=== PATIENT | male | born 1935 | race Caucasian/White ===

== ENCOUNTER 2023-01-16 14:10 | Inpatient (IN) ==
[2023-01-16] MEDS ORDERED: 0.9 % SODIUM CHLORIDE 500 ML IV ONE (14:23)
[2023-01-16] MEDS ORDERED: ONDANSETRON 4 MG/2 ML VIAL IV ONE (14:23)
[2023-01-16] MEDS ORDERED: morphine 2 MG/ML VIAL IV ONE (14:23)
--- NOTE | 2023-01-16 14:28 | Emergency Department Note ---
Syncope HPI General Chief Complaint: Trauma Stated Complaint: Fall Time Seen by Provider: 01/16/23 14:19 Source: patient, family and EMS Mode of arrival: EMS Limitations: no limitations History of Present Illness HPI Narrative: Narrative: The patient presents after a syncopal episode that occurred yesterday. Patient was found in the bathtub today by a neighbor. The patient thinks that it was yesterday that he passed out but is not 100% sure. Patient presents with an injury to his left shoulder. Patient has been down at least since yesterday. Patient denies chest pain, headache, abdominal pain, or any other extremity injury. Patient is in a splint for his left shoulder. He is also in a cervical collar. Related Data Home Medications Medication Instructions Recorded Confirmed acetaminophen 300 mg-codeine 30 12.5 ml PO TID 05/25/22 07/10/22 mg/12.5 mL (12.5 mL) oral solution amlodipine 10 mg tablet 10 mg PO QDAY 05/25/22 07/10/22 carvedilol 6.25 mg tablet 6.25 mg PO BID 05/25/22 07/10/22 qjrbbexc-bqo-ccrab acid 300 1 tab PO QDAY 05/25/22 07/10/22 mcg-lycopene 600 mcg-lutein 300 mcg tablet (Centrum Silver Men) quinapril 40 mg tablet 40 mg PO QDAY 05/25/22 07/10/22 salmon oil-omega-3 fatty acids cap PO 05/25/22 07/10/22 1,000 mg-200 mg capsule Previous Rx's Medication Instructions Recorded ibuprofen 400 mg tablet 400 mg PO Q8H PRN prakash #30 tabs 12/28/22 Allergies Allergy/AdvReac Type Severity Reaction Status Date / Time No Known Drug Allergies Allergy Verified 01/16/23 14:19 Review of Systems ROS ROS Narrative: Narrative: All systems ED: reviewed and negative except as stated. PFSH Narrative Patient History Narrative: Narrative: Medical/Surgical/Family History All Active Problems (Updated 01/16/23 @ 16:40 by Charlie Campbell MD) Hematuria (Acute) Arrhythmia (Chronic) Hypertension (Chronic) Elevated liver enzymes (Chronic) Alcoholic fatty liver (Chronic) Cervical spondylolysis (Chronic) Spinal stenosis in cervical region (Chronic) Weakness of distal arms and legs (Chronic) Pain in right shoulder (Chronic) Squamous cell carcinoma (Chronic) Hearing loss (Chronic) Stiff neck (Chronic) Gross hematuria (Acute) H/O prostate cancer (Chronic) Status post radiation therapy (Chronic) Cellulitis of knee, left (Acute) Syncope (Acute) Closed head injury (Acute) Anterior dislocation of left shoulder (Acute) Rhabdomyolysis (Acute) Medical History Alcoholic fatty liver Arrhythmia Cervical spondylolysis with radiculopathy Elevated liver enzymes Hearing loss Hematuria Hypertension Pain in right shoulder Spinal stenosis in cervical region Squamous cell carcinoma Stiff neck Weakness of distal arms and legs Surgical History History of cataract extraction History of surgery Neck Reconstruction-2020 History of surgery implants Family History Father Cancer Sister Diabetes Cancer Social History Smoking Status: Never smoker Alcohol Intake Frequency: 0-2 drinks per day Substance Use: does not use Exam Narrative Narrative: Narrative: General Limitations: no limitations General appearance: Present alert and in no apparent distress Head Head: Present atraumatic and normal inspection Eye Eye: Present normal appearance, PERRL and EOMI ENT ENT: Present mucous membranes dry Neck Neck: Present normal inspection, trachea midline and other (Maintaining inline C-spine stabilization, C-spine is palpated and is nontender); Absent tenderness Chest Chest: Present normal inspection and symmetric chest wall rise; Absent tenderness Respiratory Respiratory: Present normal lung sounds bilaterally; Absent respiratory distress Cardiovascular Cardiovascular: Present regular rate, normal rhythm and other (+2 pulses in all 4 extremities) Adbominal Abdominal: Present soft; Absent distention or tenderness Extremities Extremities: Present tenderness (Tenderness to palpate left shoulder. Palpation the rest of skeletal system reveals no bony tenderness); Absent normal inspection (Deformity to the left shoulder) or full ROM (Decreased ability to move left shoulder) Back Back: Present full ROM; Absent tenderness, CVA tenderness (R) or CVA tenderness (L) Neurological Neurological: Present alert, oriented X3, CN II-XII intact and other (GCS 15); Absent motor sensory deficit Psychiatric Psychiatric: Present normal affect and normal mood Skin Skin: Present warm (WNL) and dry Course Reevaluation(s) Reevaluation #1: After verbal consent was obtained from patient and family, a closed relocation of the left shoulder was attempted. Given patient's medical history, I do not feel comfortable doing a full procedural sedation so we gave him fentanyl and then using traction, countertraction, the shoulder was attempted to be manipulated back into place. Unfortunately, this was unsuccessful. Patient did have greater range of motion and less pain afterwards but I still feel like the shoulder is out. Plan to consult with orthopedics. Time: 15:21 Consultations Consultation #1: I spoke to the orthopedic surgeon, Dr. Deshpande. He said after he gets out of the OR he would come down to see what assistance he could provide Time: 15:23 Consultation #2: Anesthesia is here as well to do the sedation for orthopedics. Time: 16:20 Consultation #3: I spoke to the hospitalist, Dr. Armijo. He agreed to admit Time: 16:36 Vital Signs Vital signs: Vital Signs Temperature 96.6 F L 01/16/23 14:10 Pulse Rate 83 01/16/23 14:10 Respiratory Rate 20 01/16/23 14:10 Blood Pressure 156/92 01/16/23 14:10 Pulse Oximetry (%) 98 01/16/23 14:10 Oxygen Delivery Method Nasal Cannula 01/16/23 14:10 Oxygen Flow Rate (L/min) 2 01/16/23 14:10 Temperature 96.6 F L 01/16/23 14:40 Pulse Rate 44 L 01/16/23 16:17 Respiratory Rate 16 01/16/23 16:17 Blood Pressure 161/75 01/16/23 16:17 Pulse Oximetry (%) 97 01/16/23 16:17 Oxygen Delivery Method Nasal Cannula 01/16/23 16:17 Oxygen Flow Rate (L/min) 2 01/16/23 16:17 [facility] Narrative Medical decision making narrative: Narrative: The patient presents after a syncopal episode that may have occurred yesterday. Patient was then on the ground until today. Patient has an injury to his left shoulder. Patient is on Eliquis. Work-up will be twofold. First for the syncope, we will obtain EKG, keep him on a monitor, and obtain appropriate labs. Regarding the trauma, we will check a CK to see if there is rhabdomyolysis. We will image the head, cervical spine, and left shoulder. Plan to give morphine for pain and Zofran to counteract any nausea. He does appear dehydrated so we will give 1/2 L bolus and start at 100mL an hour Lab Data 01/16/23 14:41 Labs: Lab Results 01/16/23 01/16/23 01/16/23 Range/Units 14:34 14:37 14:39 WBC (4.5-11.0) K/mcL RBC (4.63-6.08) M/mcL Hgb (13.7-17.5) g/dL Hct (40.1-51.0) % POC Hct 48.0 (41-55) MCV (80.0-100.0) fL MCH (26.0-34.0) pg MCHC (31.0-36.0) g/dL RDW (11.5-14.5) % Plt Count (140-440) K/mcL MPV (8.8-12.5) fL Immature Gran % (Auto) (0.0-0.5) % Neut % (Auto) (38.0-78.0) % Lymph % (Auto) (15.5-49.0) % Aiken % (Auto) (1.0-12.0) % Eos % (Auto) (0.0-7.0) % Baso % (Auto) (0.0-2.0) % Lymph # (Auto) (1.50-4.80) K/mcL Aiken # (Auto) (0.10-0.90) K/mcL Eos # (Auto) (0.00-0.70) K/mcL Baso # (Auto) (0.00-0.30) K/mcL Immature Gran # (0.00-0.05) K/mcl Absolute Neutrophils (1.80-8.00) K/mcL PT (11.9-14.5) sec INR (0.9-1.1) APTT (20.0-37.0) sec POC VBG pH 7.33 (7.32-7.42) POC VBG pCO2 at Temp 48.1 (41-51) POC VBG pO2 34 (25-40) POC VBG HCO3 25.5 (24-28) POC VBG Total CO2 27.0 (25-29) POC Venous O2 Sat 60.0 (40-70) POC VBG Base Excess 0 (-2-2) VBG Lactic Acid 1.8 (0.5-2) POC Sodium 141 (133-145) POC Potassium 3.9 (3.3-5.1) POC Chloride 105 (96-108) POC Total CO2 24.0 (22-30) POC BUN 61 H (6-20) POC Creatinine 0.8 (0.6-1.2) POC Glucose 113 H (70-105) POC WB Ioniz Calcium 1.11 L (1.16-1.32) Total Bilirubin (0.1-1.0) mg/dL Direct Bilirubin (<0.3) mg/dL AST (<40) U/L ALT (<40) U/L Alkaline Phosphatase (39-117) U/L Total Creatine Kinase (24-195) U/L Total Protein (5.9-8.4) gm/dL Albumin (3.2-5.2) gm/dL Globulin (2.2-3.7) gm/dL POC Troponin I 0.02 (0.00-0.08) 01/16/23 01/16/23 01/16/23 Range/Units 14:40 14:41 14:41 WBC 15.8 H (4.5-11.0) K/mcL RBC 4.88 (4.63-6.08) M/mcL Hgb 15.8 (13.7-17.5) g/dL Hct 44.2 (40.1-51.0) % POC Hct (41-55) MCV 90.6 (80.0-100.0) fL MCH 32.4 (26.0-34.0) pg MCHC 35.7 (31.0-36.0) g/dL RDW 12.4 (11.5-14.5) % Plt Count 206 (140-440) K/mcL MPV 11.2 (8.8-12.5) fL Immature Gran % (Auto) 0.4 (0.0-0.5) % Neut % (Auto) 86.2 H (38.0-78.0) % Lymph % (Auto) 3.4 L (15.5-49.0) % Aiken % (Auto) 9.9 (1.0-12.0) % Eos % (Auto) 0 (0.0-7.0) % Baso % (Auto) 0.1 (0.0-2.0) % Lymph # (Auto) 0.54 L (1.50-4.80) K/mcL Aiken # (Auto) 1.57 H (0.10-0.90) K/mcL Eos # (Auto) 0 (0.00-0.70) K/mcL Baso # (Auto) 0.02 (0.00-0.30) K/mcL Immature Gran # 0.07 H (0.00-0.05) K/mcl Absolute Neutrophils 13.60 H (1.80-8.00) K/mcL PT 14.6 H (11.9-14.5) sec INR 1.1 (0.9-1.1) APTT 26.2 (20.0-37.0) sec POC VBG pH (7.32-7.42) POC VBG pCO2 at Temp (41-51) POC VBG pO2 (25-40) POC VBG HCO3 (24-28) POC VBG Total CO2 (25-29) POC Venous O2 Sat (40-70) POC VBG Base Excess (-2-2) VBG Lactic Acid (0.5-2) POC Sodium (133-145) POC Potassium (3.3-5.1) POC Chloride (96-108) POC Total CO2 (22-30) POC BUN (6-20) POC Creatinine (0.6-1.2) POC Glucose (70-105) POC WB Ioniz Calcium (1.16-1.32) Total Bilirubin 1.4 H (0.1-1.0) mg/dL Direct Bilirubin 0.4 H (<0.3) mg/dL AST 264 H (<40) U/L ALT 98 H (<40) U/L Alkaline Phosphatase 68 (39-117) U/L Total Creatine Kinase 5089 H (24-195) U/L Total Protein 7.4 (5.9-8.4) gm/dL Albumin 3.5 (3.2-5.2) gm/dL Globulin 3.9 H (2.2-3.7) gm/dL POC Troponin I (0.00-0.08) EKG Data EKG #1: EKG attestation: Yes I reviewed and interpreted this EKG. and Yes There are no EKG findings of acute coronary syndrome EKG results narrative: Possible sinus dysrhythmia, rate 80, normal axis, QTc 484, narrow complex QRS, no acute ST or T changes worrisome for acute infarction CC TIME Critical Care Time Critical Care Time: Yes Total Critical Care Time: 55 Attestation: Without intervention, patient most likely would have a deleterious outcome Discharge Plan Patient/Caregiver Discharge Instructions Pt seen by STENOGRAPHER SECRETARY/PA only: No Clinical Impression: Syncope Qualifiers: Syncope type: unspecified Qualified Code(s): R55 - Syncope and collapse Closed head injury Qualifiers: Encounter type: initial encounter Qualified Code(s): S09.90XA - Unspecified injury of head, initial encounter Anterior dislocation of left shoulder Qualifiers: Encounter type: initial encounter Qualified Code(s): S43.015A - Anterior dislocation of left humerus, initial encounter Rhabdomyolysis Qualifiers: Rhabdomyolysis type: traumatic Encounter type: initial encounter Qualified Code (s): T79.6XXA - Traumatic ischemia of muscle, initial encounter Patient Disposition: Xfer As Inpt ([facility]) Follow up with: Zuri Patton MD [Primary Care Provider] - Prescriptions: No Action acetaminophen-codeine 300 mg-30 mg /12.5 mL solution 12.5 ml PO TID carvedilol 6.25 mg tablet 6.25 mg PO BID Rx Instructions: must administer with a meal/food amlodipine 10 mg tablet 10 mg PO QDAY quinapril 40 mg tablet 40 mg PO QDAY salmon oil-omega-3 fatty acids 1,000-200 mg capsule PO Centrum Silver Men 300-600-300 mcg tablet 1 tab PO QDAY ibuprofen 400 mg tablet 400 mg PO Q8H PRN (Reason: prakash) Qty: 30 0RF
[2023-01-16] MEDS ORDERED: 0.9 % SODIUM CHLORIDE 1,000 ML IV SCH (14:30)
[2023-01-16 14:52] LABS: POC Calcium, Ionized 1.11 (1.16-1.32); POC Creatinine 0.8 (0.6-1.2); POC Potassium 3.9 (3.3-5.1)
[2023-01-16] MEDS ORDERED: fentaNYL 100 MCG/2 ML VIAL IV ONE (15:03)
[2023-01-16 15:28] LABS: Basophils # (Auto) 0.02 K/mcL (0.00-0.30); Basophils % (Auto) 0.1 % (0.0-2.0); Eosinophils # (Auto) 0 K/mcL (0.00-0.70); Eosinophils % (Auto) 0 % (0.0-7.0); Hematocrit 44.2 % (40.1-51.0); Hemoglobin 15.8 g/dL (13.7-17.5); Lymphocytes # (Auto) 0.54 K/mcL (1.50-4.80); Lymphocytes % (Auto) 3.4 % (15.5-49.0); Mean Cell Volume 90.6 fL (80.0-100.0); Mean Corpuscular HGB Conc 35.7 g/dL (31.0-36.0); Mean Platelet Volume 11.2 fL (8.8-12.5); Monocytes # (Auto) 1.57 K/mcL (0.10-0.90); Monocytes % (Auto) 9.9 % (1.0-12.0); Neutrophils % (Auto) 86.2 % (38.0-78.0); Platelet Count 206 K/mcL (140-440); RBC 4.88 M/mcL (4.63-6.08); Red Cell Distribution Width 12.4 % (11.5-14.5); WBC 15.8 K/mcL (4.5-11.0)
[2023-01-16 15:34] LABS: INR 1.1 (0.9-1.1); Prothrombin Time 14.6 sec (11.9-14.5)
[2023-01-16 15:35] LABS: Partial Thromboplastin Time 26.2 sec (20.0-37.0)
--- NOTE | 2023-01-16 15:44 | Cat Scan Report ---
CLINICAL INFORMATION: Trauma-fall COMPARISON: None. TECHNIQUE: 2.5 mm helical slices were obtained in the skull base to vertex. Following reconstruction, axial reformatted images were reviewed at bone and parenchymal windows. The exam was performed using radiation dose optimization techniques including, but not limited to, automated exposure control, adjustment of the mA and/or kV according to patient size and use of iterative reconstruction technique. FINDINGS: The ventricles, sulci, fissures, and cisterns are symmetrically enlarged compatible with mild age-related atrophy. No extra-axial fluid collections are identified. Mild patchy chronic ischemic changes, in the deep cerebral white matter, are expected for age. There is no hemorrhage, mass effect, or edema. Bone windows show no osseous abnormality. IMPRESSION: Mild atrophy and chronic ischemic changes in the deep cerebral white matter-expected for age. No acute findings Interpreted and Authenticated by: Tate Phelps 01/16/23
--- NOTE | 2023-01-16 15:51 | XRay Report ---
CLINICAL INFORMATION: sycope COMPARISON: Health Assessment And Treatment Teacher films of the lower chest from abdomen and pelvic CT 06/07/2022. FINDINGS:: Moderate cardiomegaly is stable. Mediastinum and pulmonary vessels are normal. Marked chronic elevation left diaphragm with compressive atelectasis in the overlying lingula and left lower lobe seen as before. The remaining lungs are clear. Complete dislocation of the left glenohumeral joint appreciated. There is marked superior subluxation of the right humerus suggesting chronic rotator cuff tear. Few malunified old left-sided rib fractures noted. IMPRESSION: No acute disease. Marked chronic elevation left diaphragm resulting in compressive atelectasis overlying lingula left lower lobe-stable Moderate stable cardiomegaly Complete dislocation left glenohumeral joint. There is subluxation right humeral patible with impingement chronic rotator cuff tear Interpreted and Authenticated by: Tate Phelps 01/16/23
[2023-01-16 15:52] LABS: ALT/SGPT 98 U/L (<40); AST/SGOT 264 U/L (<40); Albumin 3.5 gm/dL (3.2-5.2); Alkaline Phosphatase 68 U/L (39-117); Bilirubin,Direct 0.4 mg/dL (<0.3); Bilirubin,Total 1.4 mg/dL (0.1-1.0); Globulin 3.9 gm/dL (2.2-3.7)
--- NOTE | 2023-01-16 15:54 | XRay Report ---
CLINICAL INFORMATION: fall COMPARISON: None. FINDINGS: Complete anterior inferior dislocation of glenohumeral joint appreciated. There is a subtle Bankart fracture of the anterior-inferior osseous glenoid. Also Hill-Sachs fracture posterior lateral humeral head. The acromioclavicular joint is normal. Soft tissue swelling appreciated. Multiple old posterior left rib fractures appreciated IMPRESSION: Complete anterior-inferior glenohumeral dislocation with associated Bankart and Hill-Sachs fractures. Interpreted and Authenticated by: Tate Phelps 01/16/23
--- NOTE | 2023-01-16 16:03 | Cat Scan Report ---
CLINICAL INFORMATION: COMPARISON: None. TECHNIQUE: 0.625 mm helical slices were obtained from the skull base through the superior T2 end plate, and following reconstruction, 2.5 mm sagittal, coronal and axial reformations were then processed. The exam was reviewed at bone and soft tissue windows. The exam was performed using radiation dose optimization techniques including, but not limited to, automated exposure control, adjustment of the mA and/or kV according to patient size and use of iterative reconstruction technique. FINDINGS: The cervical spine is anatomically aligned. Mild wedging of the T2 vertebral body likely indicates a mild old compression fracture-there is no paraspinous edema in this region. No fracture lines identified. C1-2 fusion changes provided by pedicle screws and interbody struts appreciated. The left C1 screw stents through the left epidural region of the central canal with the tip between the dens and the left anterior arch of C1. The left C2 screw extends through the pedicle into the left foramen transversarium. The cervical cord is normal in contour and caliber without hemorrhage or other abnormality. Soft tissues are normal. The C2-3 disc level is normal. At C3-4, mild broad disc spur complex with left-sided asymmetry and facet arthropathy result in severe left IV foraminal narrowing. At C4-5, mild broad disc spur complex and marked facet arthropathy result in moderate left and mild right IV foraminal narrowing. At C5-6, mild broad disc for complex and facet arthropathy result in severe left IV foraminal narrowing. At C6-7, mild broad disc protrusion complex facet arthropathy results in mild bilateral IV foraminal narrowing At C7-T1, mild broad disc protrusion results in moderate IV foraminal narrowing mild central canal stenosis. IMPRESSION: 1. Minimal wedging of the T2 vertebral body likely reflects a chronic fracture. There is no edema in this region suggest acute fracture. 2. C1-2 posterior fusion changes as described 3. Multilevel degeneration resulting in IV foraminal narrowing at the levels described. Interpreted and Authenticated by: Tate Phelps 01/16/23
[2023-01-16 16:05] LABS: Creatine Kinase 5089 U/L (24-195)
[2023-01-16] MEDS ORDERED: PROPOFOL 200 MG/20 ML VIAL IV ONE (16:31)
--- NOTE | 2023-01-16 16:50 | Orthopedic Consult Note ---
HPI Date of Consult Consult Date: 01/16/23 Primary Care Provider: Zuri Patton Consult Narrative Patient Information: Note initiated : 01/16/23 at 4:49 pm Service Date, if different from initiated Date: [] Patient: Cornelius Sullivan 88 y/o M admitted on for Fall. Chief Complaint: [Left shoulder dislocation ] Chief complaint: left shoudler pain, dislocation Reason for consult: left shoudler pain, dislocation cc:: CC: PFSH PFSH All Active Problems (Updated 01/16/23 @ 16:40 by Charlie Campbell MD) Hematuria (Acute) Arrhythmia (Chronic) Hypertension (Chronic) Elevated liver enzymes (Chronic) Alcoholic fatty liver (Chronic) Cervical spondylolysis (Chronic) Spinal stenosis in cervical region (Chronic) Weakness of distal arms and legs (Chronic) Pain in right shoulder (Chronic) Squamous cell carcinoma (Chronic) Hearing loss (Chronic) Stiff neck (Chronic) Gross hematuria (Acute) H/O prostate cancer (Chronic) Status post radiation therapy (Chronic) Cellulitis of knee, left (Acute) Syncope (Acute) Closed head injury (Acute) Anterior dislocation of left shoulder (Acute) Rhabdomyolysis (Acute) Medical History Alcoholic fatty liver Arrhythmia Cervical spondylolysis with radiculopathy Elevated liver enzymes Hearing loss Hematuria Hypertension Pain in right shoulder Spinal stenosis in cervical region Squamous cell carcinoma Stiff neck Weakness of distal arms and legs Surgical History History of cataract extraction History of surgery Neck Reconstruction-2020 History of surgery implants Family History Father Cancer Sister Diabetes Cancer Social History marital status: occupational status: retired leisure activities: exercise smoking status: Never smoker alcohol intake frequency: 0-2 drinks per day substance use type: does not use MEDS/ALLERGIES Home Medications and Allergies Home Medications Medication Instructions Recorded Confirmed Type acetaminophen 300 mg-codeine 30 12.5 ml PO TID 05/25/22 07/10/22 History mg/12.5 mL (12.5 mL) oral solution amlodipine 10 mg tablet 10 mg PO QDAY 05/25/22 07/10/22 History carvedilol 6.25 mg tablet 6.25 mg PO BID 05/25/22 07/10/22 History dkanxbva-cxo-bignn acid 300 1 tab PO QDAY 05/25/22 07/10/22 History mcg-lycopene 600 mcg-lutein 300 mcg tablet (Centrtimoteo Barrett Men) quinapril 40 mg tablet 40 mg PO QDAY 05/25/22 07/10/22 History salmon oil-omega-3 fatty acids cap PO 05/25/22 07/10/22 History 1,000 mg-200 mg capsule ibuprofen 400 mg tablet 400 mg PO Q8H PRN prakash #30 tabs 12/28/22 Rx Allergies Allergy/AdvReac Type Severity Reaction Status Date / Time No Known Drug Allergies Allergy Verified 01/16/23 14:19 Physical Examination Narrative Narrative: Narrative: Patient is a 88 YO male who presented to the [facility] ED after a syncopal episode that occurred yesterday. Patient was found in the bathtub today by a neighbor. The patient thinks that it was yesterday that he passed out but is not 100% sure. Patient presents with an injury to his left shoulder. Patient has been down at least since yesterday. Patient denies chest pain, headache, abdominal pain, or any other extremity injury. Patient is in a splint for his left shoulder. He is also in a cervical collar. A/P Narrative A/P Narrative: On exam patient is seated in bed in no acute distress. He is able to answer simple questions appropriately and is alert. At the left shoulder area there is gross deformity and xray imaging reveals an anterior shoulder dislocation. entirety of left arm is warm, well perfused and neuro intact with capillary refill less than 2 seconds and bounding radial pulses. I discussed the risks of reduction maneuver with family and patient including fracture, injury to nerves and blood vessels, they wish to proceed. Plan of Treatment: After informed consent and induction of anesthesia via 100mg of propofol which was administered and monitored by anesthesia provider the left shoulder was reduced utilizing traction/ counter traction abduction and flexion technique. This was confirmed with mobile radiology interpreted by myself. The patient was then placed in a shoulder immobilizer [facility] sling and will follow up with JUWAN 10-14 days s/p discharge from hospital. Bounding radial pulses were palpated after the procedure. Time Spent With Patient Time: Total time spent is greater than 50% in coordination of care (as documented) at patient's floor/unit and/or counseling patient:
--- NOTE | 2023-01-16 17:06 | Internal Med History&Physical ---
HPI History of Present Illness Patient information: Note initiated : 01/16/23 at 4:56 pm Service Date, if different from initiated Date: [] Patient: Cornelius Sullivan a 88 y/o M admitted on for Fall. Chief Complaint: [unresponsiveness] Chief complaint: unresponsiveness History of present illness: Mr. Sullivan is a 88 year old M history of hypertensions presenting with unresponsiveness. Patient had an appointment with his family but he did not show up so his family was concerned and called patient's neighbor to check on him. Patient's neighbor found that the patient was on his bath top unresponsive so EMS was called to send the patient to our ER for further evaluations. Upon arrival to the ER, patient was able to carry out conversations but x-ray of the shoulder found that he has a left anterior-inferior glenohumeral dislocations with associated Bankart and Hill-Sachs fracture. Patient was likely sedated and orthopedic surgeons Dr. Deshpande was called to reduced his left shoulder dislocations. CT of the head did not show any acute intracranial pathologies. Labs also found the patient have elevated serum CK level 5089 with serum Cr level 0.8. Admission request is called for rhabdomyolysis as well as for safety discharge planning. Review of Systems ROS unobtainable: due to mental status PFSH PFSH All Active Problems (Updated 01/16/23 @ 17:04 by Aman Armijo MD) Dislocation of left shoulder joint (Acute) Hematuria (Acute) Arrhythmia (Chronic) Hypertension (Chronic) Elevated liver enzymes (Chronic) Alcoholic fatty liver (Chronic) Cervical spondylolysis (Chronic) Spinal stenosis in cervical region (Chronic) Weakness of distal arms and legs (Chronic) Pain in right shoulder (Chronic) Squamous cell carcinoma (Chronic) Hearing loss (Chronic) Stiff neck (Chronic) Gross hematuria (Acute) H/O prostate cancer (Chronic) Status post radiation therapy (Chronic) Cellulitis of knee, left (Acute) Syncope (Acute) Closed head injury (Acute) Anterior dislocation of left shoulder (Acute) Rhabdomyolysis (Acute) Medical History Alcoholic fatty liver Arrhythmia Cervical spondylolysis with radiculopathy Elevated liver enzymes Hearing loss Hematuria Hypertension Pain in right shoulder Spinal stenosis in cervical region Squamous cell carcinoma Stiff neck Weakness of distal arms and legs Surgical History History of cataract extraction History of surgery Neck Reconstruction-2020 History of surgery implants Family History Father Cancer Sister Diabetes Cancer Social History marital status: occupational status: retired leisure activities: exercise smoking status: Never smoker alcohol intake frequency: 0-2 drinks per day substance use type: does not use MEDS/ALLERGIES Home Medications and Allergies Home Medications Medication Instructions Recorded Confirmed Type acetaminophen 300 mg-codeine 30 12.5 ml PO TID 05/25/22 07/10/22 History mg/12.5 mL (12.5 mL) oral solution amlodipine 10 mg tablet 10 mg PO QDAY 05/25/22 07/10/22 History carvedilol 6.25 mg tablet 6.25 mg PO BID 05/25/22 07/10/22 History nbylgaip-uun-immlk acid 300 1 tab PO QDAY 05/25/22 07/10/22 History mcg-lycopene 600 mcg-lutein 300 mcg tablet (Centrum Silver Men) quinapril 40 mg tablet 40 mg PO QDAY 05/25/22 07/10/22 History salmon oil-omega-3 fatty acids cap PO 05/25/22 07/10/22 History 1,000 mg-200 mg capsule ibuprofen 400 mg tablet 400 mg PO Q8H PRN prakash #30 tabs 12/28/22 Rx Allergies Allergy/AdvReac Type Severity Reaction Status Date / Time No Known Drug Allergies Allergy Verified 01/16/23 14:19 EXAM Constitutional Vitals: Temp Pulse Resp BP Pulse Ox O2 Del Method O2 Flow Rate 35.9 C L 83 18 118/62 98 Nasal Cannula 2 01/16/23 14:40 01/16/23 16:42 01/16/23 16:37 01/16/23 16:37 01/16/23 16:42 01/16/23 16:17 01/16/23 16:17 General appearance: cooperative and no acute distress Exam: sedated Head Head exam: Present atraumatic and normocephalic Eye Eye exam: Present EOMI and PERRL ENT ENT exam: Present mucous membranes moist, normal exam and normal external ear exam Additional comments: Nasal cannula in place Neck Neck exam: Present normal inspection; Absent lymphadenopathy, tenderness or thyromegaly Respiratory Respiratory exam: Absent accessory muscle use, respiratory distress or wheezes Cardiovascular Cardiovascular exam: Present normal rate and rhythm; Absent JVD GI/Abdominal GI/Abdominal exam: Present normal bowel sounds and soft; Absent organomegaly or tenderness Rectal Rectal exam: Present deferred Extremities Exam Extremities exam: Present normal capillary refill, normal inspection and tenderness; Absent full ROM Additional comments: Left shoulder sling in place Active and passive ROMs limited by pain Neurological Exam Neurological exam: Present alert, CN II-XII intact and oriented X3; Absent motor sensory deficit Psychiatric Psychiatric exam: Present normal affect and normal mood; Absent anxious or depressed Skin Skin exam: Present dry and intact DATA Data Completed and Pending Labs: Labs from last 24 hours 01/16/23 01/16/23 01/16/23 14:41 14:41 14:40 WBC 15.8 H RBC 4.88 Hgb 15.8 Hct 44.2 POC Hct MCV 90.6 MCH 32.4 MCHC 35.7 RDW 12.4 Plt Count 206 MPV 11.2 Immature Gran % (Auto) 0.4 Neut % (Auto) 86.2 H Lymph % (Auto) 3.4 L Door % (Auto) 9.9 Eos % (Auto) 0 Baso % (Auto) 0.1 Lymph # (Auto) 0.54 L Door # (Auto) 1.57 H Eos # (Auto) 0 Baso # (Auto) 0.02 Immature Gran # 0.07 H Absolute Neutrophils 13.60 H PT 14.6 H INR 1.1 APTT 26.2 POC VBG pH POC VBG pCO2 at Temp POC VBG pO2 POC VBG HCO3 POC VBG Total CO2 POC Venous O2 Sat POC VBG Base Excess VBG Lactic Acid POC Sodium POC Potassium POC Chloride POC Total CO2 POC BUN POC Creatinine POC Glucose POC WB Ioniz Calcium Total Bilirubin 1.4 H Direct Bilirubin 0.4 H AST 264 H ALT 98 H Alkaline Phosphatase 68 Total Creatine Kinase 5089 H Total Protein 7.4 Albumin 3.5 Globulin 3.9 H POC Troponin I 01/16/23 01/16/23 01/16/23 14:39 14:37 14:34 WBC RBC Hgb Hct POC Hct 48.0 MCV MCH MCHC RDW Plt Count MPV Immature Gran % (Auto) Neut % (Auto) Lymph % (Auto) Door % (Auto) Eos % (Auto) Baso % (Auto) Lymph # (Auto) Door # (Auto) Eos # (Auto) Baso # (Auto) Immature Gran # Absolute Neutrophils PT INR APTT POC VBG pH 7.33 POC VBG pCO2 at Temp 48.1 POC VBG pO2 34 POC VBG HCO3 25.5 POC VBG Total CO2 27.0 POC Venous O2 Sat 60.0 POC VBG Base Excess 0 VBG Lactic Acid 1.8 POC Sodium 141 POC Potassium 3.9 POC Chloride 105 POC Total CO2 24.0 POC BUN 61 H POC Creatinine 0.8 POC Glucose 113 H POC WB Ioniz Calcium 1.11 L Total Bilirubin Direct Bilirubin AST ALT Alkaline Phosphatase Total Creatine Kinase Total Protein Albumin Globulin POC Troponin I 0.02 A/P Assessment and plan (1) Dislocation of left shoulder joint: Status: Acute (2) Rhabdomyolysis: Status: Acute Qualifiers: Encounter type: initial encounter Rhabdomyolysis type: traumatic Qualified Code(s): T79.6XXA - Traumatic ischemia of muscle, initial encounter (3) Hypertension: Status: Chronic Narrative A/P Narrative: Assessment and Plans: 1. Rhabdomyolysis: Inpatient med surg s/p IV fluid bolus given in the ER, to be followed by NS@200cc/hr Daily serum CK level to trend 2. Left shoulder dislocation: s/p reduction by Dr. Deshpande Tylenol Oxycodone Morphine Sling 10-14 days follow up with Dr. Deshpande Physical therapy evaluation and treatment Occupational therapy evaluation and treatment 3. Essential hypertension: Coreg Amlodipine Quinapril Hydralazine 10mg IV q4-6hr PRN SBP>=180 and/or DBP>=110mmHg GI ppx: not currently indicated DVT ppx: Lovenox Code status: Full Prognosis: guarded Disposition: inpatient med surg Time Spent With Patient Time: Total time spent is greater than 50% in coordination of care (as documented) at patient's floor/unit and/or counseling patient: Subsequent: Total time with patient: 35 - 49 minutes
--- NOTE | 2023-01-16 17:27 | XRay Report ---
CLINICAL INFORMATION: post reduction COMPARISON: Prereduction films 01/16/2023 1430 hours. FINDINGS: Left humeral joint is anatomically aligned following reduction. Hill-Sachs fracture posterior lateral humeral cortex of the Bankart fracture anterior inferior cortex are poorly visualized. The acromioclavicular joint is normal. Soft tissue swelling appreciated. IMPRESSION: Glenohumeral joint is now anatomically aligned following reduction after dislocation Interpreted and Authenticated by: Tate Phelps 01/16/23
[2023-01-16] MEDS ORDERED: IPRATROPIUM/ALBUTEROL 3 ML AMPUL.NEB NEB PRN (17:46)
[2023-01-16] MEDS ORDERED: ACETAMINOPHEN 325 MG TABLET PO PRN (17:46)
[2023-01-16] MEDS ORDERED: ONDANSETRON 4 MG/2 ML VIAL IV PRN (17:46)
[2023-01-16] MEDS ORDERED: traZODone HCL 50 MG TABLET PO PRN (17:46)
[2023-01-16] MEDS ORDERED: hydrALAZINE 20 MG/ML VIAL IV PRN (17:46)
[2023-01-16] MEDS ORDERED: morphine 4 MG/ML VIAL IV PRN (17:46)
[2023-01-16] MEDS ORDERED: oxyCODONE IR 5 MG TABLET PO PRN (17:46)
[2023-01-16] MEDS: 0.9 % SODIUM CHLORIDE 1,000 ML IV SCH ×2 (18:19→23:26)
[2023-01-16 19:21] LABS: Creatine Kinase 5330 U/L (24-195)
[2023-01-16] MEDS: SENNOSIDES 1 TABLET PO SCH (21:00)
[2023-01-16] MEDS: DOCUSATE SODIUM 100 MG CAPSULE PO SCH (21:00)
[2023-01-16] MEDS: 0.9 % SODIUM CHLORIDE 10 ML SYRINGE IV SCH (23:49)
[2023-01-17] MEDS: 0.9 % SODIUM CHLORIDE 1,000 ML IV SCH ×4 (04:35→19:44)
[2023-01-17 06:19] LABS: Basophils # (Auto) 0 K/mcL (0.00-0.30); Basophils % (Auto) 0 % (0.0-2.0); Eosinophils # (Auto) 0.01 K/mcL (0.00-0.70); Eosinophils % (Auto) 0.1 % (0.0-7.0); Hematocrit 38.6 % (40.1-51.0); Hemoglobin 13.9 g/dL (13.7-17.5); Lymphocytes # (Auto) 0.49 K/mcL (1.50-4.80); Lymphocytes % (Auto) 4.8 % (15.5-49.0); Mean Platelet Volume 11.2 fL (8.8-12.5); Monocytes % (Auto) 10.9 % (1.0-12.0); Neutrophils % (Auto) 83.9 % (38.0-78.0); Platelet Count 173 K/mcL (140-440); RBC 4.24 M/mcL (4.63-6.08); Red Cell Distribution Width 12.7 % (11.5-14.5); WBC 10.1 K/mcL (4.5-11.0)
[2023-01-17 06:48] LABS: ALT/SGPT 80 U/L (<40); AST/SGOT 193 U/L (<40); Albumin 2.7 gm/dL (3.2-5.2); Albumin/Globulin Ratio 0.9 (1.0-2.3); Alkaline Phosphatase 55 U/L (39-117); Bilirubin,Total 0.7 mg/dL (0.1-1.0); Blood Urea Nitrogen 59 mg/dL (8-23); Calcium 7.9 mg/dL (8.6-10.4); Carbon Dioxide 21 mmol/L (22-30); Chloride 110 mmol/L (96-108); Globulin 3.1 gm/dL (2.2-3.7); Glomerular Filtration Rate 79; Glucose 92 mg/dL (70-105)
[2023-01-17] MEDS: 0.9 % SODIUM CHLORIDE 10 ML SYRINGE IV SCH ×3 (08:14→20:16)
[2023-01-17] MEDS: DOCUSATE SODIUM 100 MG CAPSULE PO SCH ×2 (08:16→20:15)
[2023-01-17] MEDS ORDERED: ENOXAPARIN 30 MG/0.3 ML SYRINGE SQ SCH (09:00)
[2023-01-17] MEDS ORDERED: INDOMETHACIN 25 MG CAPSULE PO PRN (11:04)
--- NOTE | 2023-01-17 11:11 | Internal Med Progress Note ---
SUBJECTIVE Subjective Patient information: Note initiated : 01/17/23 at 11:08 am Service Date, if different from initiated Date: [] Patient: Cornelius Sullivan a 88 y/o M admitted on 01/16/23 for Fall, Rhabdo. Chief Complaint: [] Interval history: Mr. Sullivan is a 88 year old M history of hypertensions presenting with unresponsiveness. Patient had an appointment with his family but he did not show up so his family was concerned and called patient's neighbor to check on him. Patient's neighbor found that the patient was on his bath top unresponsive so EMS was called to send the patient to our ER for further evaluations. Upon arrival to the ER, patient was able to carry out conversations but x-ray of the shoulder found that he has a left anterior-inferior glenohumeral dislocations with associated Bankart and Hill-Sachs fracture. Patient was likely sedated and orthopedic surgeons Dr. Deshpande was called to reduced his left shoulder disloc ations. CT of the head did not show any acute intracranial pathologies. Labs also found the patient have elevated serum CK level 5089 with serum Cr level 0.8. Admission request is called for rhabdomyolysis as well as for safety discharge planning. 01/17: Serum Cr level 0.8, serum CK 5330. Adequate urine output. Patient denies having any left shoulder pain. A&OX2 to person and place only. Continue normal saline infusion at 200 cc/h. Continue with daily CMP and CK to trend kidney functions and serum CK level, respectively. Narcotic as needed for left shoulder pain. Physical therapy and Occupational Therapy evaluation and treatment for placement pending. Overall condition guarded. [facility] Constitutional Vitals: Vital Signs Temp Pulse Resp BP Pulse Ox O2 Del Method O2 Flow Rate 37.1 C 75 12 142/74 96 Nasal Cannula 4 01/17/23 07:03 01/17/23 07:03 01/17/23 04:00 01/17/23 07:03 01/17/23 07:03 01/17/23 07:03 01/17/23 07:03 Period Temp Pulse Resp BP Sys/Alexis Pulse Ox O2 Del Method O2 Flow Rate Last 24 Hr 35.9 C-37.2 C 44-107 12-21 118-186/59-94 96-100 Nasal Cannula- Nasal Cannula 2-4 Intake and Output 01/16/23 01/17/23 01/17/23 19:59 03:59 11:59 Intake Total 1500 1150 1800 Output Total 301 Balance 1500 1150 1499 Weight 92.306 kg Intake & Output: Intake & Output 01/16/23 01/17/23 01/17/23 19:59 03:59 11:59 Intake Total 1500 1150 1800 Output Total 301 Balance 1500 1150 1499 Weight 92.306 kg Intake: IV 1500 1000 1000 Sodium Chloride 0.9% 1,000 ml @ 1000 1000 1000 200 mls/hr IV .Q5H COUNT INCLUDES THE [facility] Rx#: [id number] Sodium Chloride 0.9% 500 ml @ 500 Wide Open IV BOLUS ONE Rx#: [id number] Oral 150 800 Output: Void Amount 300 # of times incontinent of urine 1 Other: Meal Breakfast Percent of Meal Consumed 50% Feeding Ability Assist with Tray Set Up Urine Appearance Clear Urine Color Tea Colored Tea Colored Dark Rosalba Urine Odor Normal Normal # Voids 1 Head Head exam: Present atraumatic and normal inspection Eye Eye exam: Present normal appearance ENT ENT exam: Present mucous membranes moist, normal exam and normal external ear exam Additional comments: Nasal cannula oxygen in place. Neck Neck exam: Present normal inspection Respiratory Respiratory exam: Present normal respiratory exam Additional comments: Left upper extremity sling in place Cardiovascular Cardiovascular exam: Present normal rate and rhythm GI/Abdominal GI/Abdominal exam: Present normal bowel sounds Back Exam Back exam: Present normal inspection Neurological Exam Neurological exam: Present alert Additional comments: oriented X2 to person and place only Skin Skin exam: Present intact and warm OBJ DATA Labs 01/17/23 05:38 01/17/23 05:38 Labs: Abnormal Lab Results 01/17/23 01/17/23 01/16/23 05:38 05:38 17:55 WBC RBC 4.24 L Hct 38.6 L Neut % (Auto) 83.9 H Lymph % (Auto) 4.8 L Lymph # (Auto) 0.49 L Campbell # (Auto) 1.10 H Immature Gran # Absolute Neutrophils 8.49 H PT Chloride 110 H Carbon Dioxide 21 L POC BUN BUN 59 H POC Glucose Calcium 7.9 L POC WB Ioniz Calcium Total Bilirubin Direct Bilirubin AST 193 H ALT 80 H Total Creatine Kinase 5330 H Total Protein 5.8 L Albumin 2.7 L Globulin Albumin/Globulin Ratio 0.9 L 01/16/23 01/16/23 01/16/23 14:41 14:41 14:40 WBC 15.8 H RBC Hct Neut % (Auto) 86.2 H Lymph % (Auto) 3.4 L Lymph # (Auto) 0.54 L Campbell # (Auto) 1.57 H Immature Gran # 0.07 H Absolute Neutrophils 13.60 H PT 14.6 H Chloride Carbon Dioxide POC BUN BUN POC Glucose Calcium POC WB Ioniz Calcium Total Bilirubin 1.4 H Direct Bilirubin 0.4 H AST 264 H ALT 98 H Total Creatine Kinase 5089 H Total Protein Albumin Globulin 3.9 H Albumin/Globulin Ratio 01/16/23 14:37 WBC RBC Hct Neut % (Auto) Lymph % (Auto) Lymph # (Auto) Campbell # (Auto) Immature Gran # Absolute Neutrophils PT Chloride Carbon Dioxide POC BUN 61 H BUN POC Glucose 113 H Calcium POC WB Ioniz Calcium 1.11 L Total Bilirubin Direct Bilirubin AST ALT Total Creatine Kinase Total Protein Albumin Globulin Albumin/Globulin Ratio Meds: Medications Acetaminophen (Acetaminophen 325 Mg Tablet) 650 mg PO Q6HP PRN; Protocol PRN Reason: Per Pain Protocol/Fever > 101 Albuterol/Ipratropium (Ipratropium/Albuterol 3 Ml Ampul.Neb) 3 ml NEB Q4HRT PRN PRN Reason: Wheezing Amlodipine Besylate (Amlodipine 10 Mg Tablet) 10 mg PO QDAY COUNT INCLUDES THE [facility] Apixaban (Apixaban 5 Mg Tablet) 5 mg PO BID COUNT INCLUDES THE [facility] Docusate Sodium (Docusate Sodium 100 Mg Capsule) 100 mg PO BID COUNT INCLUDES THE [facility] Last Admin: 01/17/23 08:16 Dose: 100 mg Enoxaparin Sodium (Enoxaparin 30 Mg/0.3 Ml Syringe) 30 mg SQ DAILY COUNT INCLUDES THE [facility] Last Admin: 01/17/23 08:16 Dose: 30 mg Hydralazine HCl (Hydralazine 20 Mg/Ml Vial) 10 mg IV Q4-6HP PRN PRN Reason: Hypertension Sodium Chloride (Sodium Chloride 0.9%) 1,000 mls @ 200 mls/hr IV .Q5H COUNT INCLUDES THE [facility] Last Admin: 01/17/23 08:16 Dose: Not Given Indomethacin (Indomethacin 25 Mg Capsule) 25 mg PO TIDP PRN PRN Reason: "three times daily as needed" Losartan Potassium (Losartan 25 Mg Tablet) 25 mg PO DAILY COUNT INCLUDES THE [facility] Morphine Sulfate (Morphine 4 Mg/Ml Vial) 2 mg IV Q4HP PRN; Protocol PRN Reason: Per Pain Protocol Last Admin: 01/16/23 17:56 Dose: 2 mg Ondansetron HCl (Ondansetron 4 Mg/2 Ml Vial) 4 mg IV Q6HP PRN PRN Reason: Nausea And Vomiting Oxycodone HCl (Oxycodone Ir 5 Mg Tablet) 5 mg PO Q4HP PRN; Protocol PRN Reason: Per Pain Protocol Last Admin: 01/16/23 22:03 Dose: 5 mg Senna (Sennosides 1 Tablet) 2 tab PO HS COUNT INCLUDES THE [facility] Last Admin: 01/16/23 21:00 Dose: Not Given Sodium Chloride (0.9 % Sodium Chloride 10 Ml Syringe) 10 ml IV Q8 COUNT INCLUDES THE [facility] Last Admin: 01/17/23 08:14 Dose: Not Given Trazodone HCl (Trazodone Hcl 50 Mg Tablet) 25 mg PO HSP PRN PRN Reason: Insomnia A/P Assessment and plan (1) Dislocation of left shoulder joint: Status: Acute (2) Rhabdomyolysis: Status: Acute Qualifiers: Encounter type: initial encounter Rhabdomyolysis type: traumatic Qualified Code(s): T79.6XXA - Traumatic ischemia of muscle, initial encounter (3) Hypertension: Status: Chronic Narrative A/P Narrative: Assessment and Plans: 1. Rhabdomyolysis: Inpatient med surg s/p IV fluid bolus given in the ER, to be followed by NS@200cc/hr Daily serum CK level to trend Daily CMP to trend kidney functions 2. Left shoulder dislocation: s/p reduction by Dr. Deshpande Tylenol Oxycodone Morphine Sling 10-14 days follow up with Dr. Deshpande Physical therapy evaluation and treatment Occupational therapy evaluation and treatment 3. Essential hypertension: Coreg Amlodipine Quinapril Hydralazine 10mg IV q4-6hr PRN SBP>=180 and/or DBP>=110mmHg GI ppx: not currently indicated DVT ppx: Lovenox Code status: Full Prognosis: guarded Disposition: inpatient med surg Time Spent With Patient Time: Total time spent is greater than 50% in coordination of care (as documented) at patient's floor/unit and/or counseling patient: Subsequent: Total time with patient: 35 - 49 minutes QUALITY Stroke Symptom Onset Unknown: No VTE Deep Vein Thrombosis/Pulmonary Embolism Present on Admission: No
[2023-01-17 19:14] LABS: Creatine Kinase 1922 U/L (24-195)
[2023-01-17] MEDS: SENNOSIDES 1 TABLET PO SCH (20:15)
[2023-01-17] MEDS: APIXABAN 5 MG TABLET PO SCH (20:15)
[2023-01-18] MEDS: 0.9 % SODIUM CHLORIDE 1,000 ML IV SCH ×6 (01:38→23:12)
[2023-01-18] MEDS: 0.9 % SODIUM CHLORIDE 10 ML SYRINGE IV SCH ×3 (05:29→20:16)
[2023-01-18 06:45] LABS: Basophils # (Auto) 0.01 K/mcL (0.00-0.30); Basophils % (Auto) 0.1 % (0.0-2.0); Eosinophils # (Auto) 0.02 K/mcL (0.00-0.70); Eosinophils % (Auto) 0.3 % (0.0-7.0); Hematocrit 37.9 % (40.1-51.0); Hemoglobin 12.4 g/dL (13.7-17.5); Lymphocytes # (Auto) 0.67 K/mcL (1.50-4.80); Lymphocytes % (Auto) 8.7 % (15.5-49.0); Mean Cell Volume 98.2 fL (80.0-100.0); Mean Corpuscular HGB Conc 32.7 g/dL (31.0-36.0); Mean Platelet Volume 10.7 fL (8.8-12.5); Monocytes # (Auto) 1.02 K/mcL (0.10-0.90); Monocytes % (Auto) 13.2 % (1.0-12.0); Neutrophils % (Auto) 76.9 % (38.0-78.0); Platelet Count 154 K/mcL (140-440); RBC 3.86 M/mcL (4.63-6.08); Red Cell Distribution Width 13.2 % (11.5-14.5); WBC 7.7 K/mcL (4.5-11.0)
[2023-01-18 07:22] LABS: ALT/SGPT 64 U/L (<40); AST/SGOT 129 U/L (<40); Albumin 2.6 gm/dL (3.2-5.2); Albumin/Globulin Ratio 0.8 (1.0-2.3); Alkaline Phosphatase 52 U/L (39-117); Bilirubin,Total 0.8 mg/dL (0.1-1.0); Blood Urea Nitrogen 37 mg/dL (8-23); Calcium 7.8 mg/dL (8.6-10.4); Carbon Dioxide 20 mmol/L (22-30); Chloride 112 mmol/L (96-108); Globulin 3.1 gm/dL (2.2-3.7); Glomerular Filtration Rate 89; Glucose 105 mg/dL (70-105)
[2023-01-18] MEDS: amLODIPine 10 MG TABLET PO SCH (08:14)
[2023-01-18] MEDS: DOCUSATE SODIUM 100 MG CAPSULE PO SCH ×2 (08:14→20:16)
[2023-01-18] MEDS: APIXABAN 5 MG TABLET PO SCH ×2 (08:14→20:16)
[2023-01-18] MEDS: LOSARTAN 25 MG TABLET PO SCH (08:14)
--- NOTE | 2023-01-18 11:01 | Internal Med Progress Note ---
SUBJECTIVE Subjective Patient information: Note initiated : 01/18/23 at 10:59 am Service Date, if different from initiated Date: [] Patient: Cornelius Sullivan a 88 y/o M admitted on 01/16/23 for Fall, Rhabdo. Chief Complaint: [] Interval history: Mr. Sullivan is a 88 year old M history of hypertensions presenting with unresponsiveness. Patient had an appointment with his family but he did not show up so his family was concerned and called patient's neighbor to check on him. Patient's neighbor found that the patient was on his bath top unresponsive so EMS was called to send the patient to our ER for further evaluations. Upon arrival to the ER, patient was able to carry out conversations but x-ray of the shoulder found that he has a left anterior-inferior glenohumeral dislocations with associated Bankart and Hill-Sachs fracture. Patient was likely sedated and orthopedic surgeons Dr. Deshpande was called to reduced his left shoulder disloc ations. CT of the head did not show any acute intracranial pathologies. Labs also found the patient have elevated serum CK level 5089 with serum Cr level 0.8. Admission request is called for rhabdomyolysis as well as for safety discharge planning. 01/17: Serum Cr level 0.8, serum CK 5330. Adequate urine output. Patient denies having any left shoulder pain. A&OX2 to person and place only. Continue normal saline infusion at 200 cc/h. Continue with daily CMP and CK to trend kidney functions and serum CK level, respectively. Narcotic as needed for left shoulder pain. Physical therapy and Occupational Therapy evaluation and treatment for placement pending. Overall condition guarded. Stay in [facility]. 01/18: Serum Cr level 0.6, serum CK 1922. Adequate urine output. Patient denies having any left shoulder pain. A&OX2 to person and place only. Continue normal saline infusion at 200 cc/h. Continue with daily CMP and CK to trend kidney functions and serum CK level, respectively. Narcotic as needed for left shoulder pain. Physical therapy and Occupational Therapists recs. SNF placement. Overall condition stable. Stay in [facility] while pending discharge to SNF. Constitutional Vitals: Vital Signs Temp Pulse Resp BP Pulse Ox O2 Del Method O2 Flow Rate 37.1 C 73 20 162/76 97 Nasal Cannula 2 01/18/23 07:43 01/18/23 07:43 01/18/23 07:43 01/18/23 07:43 01/18/23 07:43 01/18/23 07:43 01/18/23 07:43 Period Temp Pulse Resp BP Sys/Alexis Pulse Ox O2 Del Method O2 Flow Rate Last 24 Hr 36.6 C-37.2 C 73-91 20-22 137-171/72-84 94-99 Nasal Cannula- Nasal Cannula 2-4 Intake and Output 01/17/23 01/18/23 01/18/23 19:59 03:59 11:59 Intake Total 1480 1000 650 Output Total 252 301 Balance 1228 699 650 Weight 91.217 kg Intake & Output: Intake & Output 01/17/23 01/18/23 01/18/23 19:59 03:59 11:59 Intake Total 1480 1000 650 Output Total 252 301 Balance 1228 699 650 Weight 91.217 kg Intake: IV 1000 1000 Sodium Chloride 0.9% 1,000 ml @ 1000 1000 200 mls/hr IV .Q5H [facility] Rx#: [id number] Oral 480 650 Output: Void Amount 250 300 # of times incontinent of urine 2 1 Other: Meal Dinner Percent of Meal Consumed 100% Feeding Ability Independent Urine Appearance Clear Clear Urine Color Dark Rosalba Light Rosalba Urine Odor Strong # Bowel Movements 0 Head Head exam: Present atraumatic and normal inspection Eye Eye exam: Present normal appearance ENT ENT exam: Present mucous membranes moist, normal exam and normal external ear exam Additional comments: Nasal cannula in place Neck Neck exam: Present normal inspection Respiratory Respiratory exam: Present normal respiratory exam Cardiovascular Cardiovascular exam: Present normal rate and rhythm GI/Abdominal GI/Abdominal exam: Present normal bowel sounds Extremities Exam Extremities exam: Present tenderness; Absent full ROM or normal inspection Additional comments: Left shoulder sling in place Back Exam Back exam: Present normal inspection Neurological Exam Neurological exam: Present alert; Absent oriented X3 Additional comments: oriented X2 to person and place only Skin Skin exam: Present intact and warm OBJ DATA Labs 01/18/23 05:18 01/18/23 05:18 Labs: Abnormal Lab Results 01/18/23 01/18/23 01/17/23 05:18 05:18 17:50 WBC RBC 3.86 L Hgb 12.4 L Hct 37.9 L Immature Gran % (Auto) 0.8 H Neut % (Auto) Lymph % (Auto) 8.7 L Walsh % (Auto) 13.2 H Lymph # (Auto) 0.67 L Walsh # (Auto) 1.02 H Immature Gran # 0.06 H Absolute Neutrophils PT Chloride 112 H Carbon Dioxide 20 L POC BUN BUN 37 H Creatinine 0.6 L POC Glucose Calcium 7.8 L POC WB Ioniz Calcium Total Bilirubin Direct Bilirubin AST 129 H ALT 64 H Total Creatine Kinase 1922 H Total Protein 5.7 L Albumin 2.6 L Globulin Albumin/Globulin Ratio 0.8 L 01/17/23 01/17/23 01/16/23 05:38 05:38 17:55 WBC RBC 4.24 L Hgb Hct 38.6 L Immature Gran % (Auto) Neut % (Auto) 83.9 H Lymph % (Auto) 4.8 L Walsh % (Auto) Lymph # (Auto) 0.49 L [place] # (Auto) 1.10 H Immature Gran # Absolute Neutrophils 8.49 H PT Chloride 110 H Carbon Dioxide 21 L POC BUN BUN 59 H Creatinine POC Glucose Calcium 7.9 L POC WB Ioniz Calcium Total Bilirubin Direct Bilirubin AST 193 H ALT 80 H Total Creatine Kinase 5330 H Total Protein 5.8 L Albumin 2.7 L Globulin Albumin/Globulin Ratio 0.9 L 01/16/23 01/16/23 01/16/23 14:41 14:41 14:40 WBC 15.8 H RBC Hgb Hct Immature Gran % (Auto) Neut % (Auto) 86.2 H Lymph % (Auto) 3.4 L Walsh % (Auto) Lymph # (Auto) 0.54 L [place] # (Auto) 1.57 H Immature Gran # 0.07 H Absolute Neutrophils 13.60 H PT 14.6 H Chloride Carbon Dioxide POC BUN BUN Creatinine POC Glucose Calcium POC WB Ioniz Calcium Total Bilirubin 1.4 H Direct Bilirubin 0.4 H AST 264 H ALT 98 H Total Creatine Kinase 5089 H Total Protein Albumin Globulin 3.9 H Albumin/Globulin Ratio 01/16/23 14:37 WBC RBC Hgb Hct Immature Gran % (Auto) Neut % (Auto) Lymph % (Auto) Walsh % (Auto) Lymph # (Auto) Walsh # (Auto) Immature Gran # Absolute Neutrophils PT Chloride Carbon Dioxide POC BUN 61 H BUN Creatinine POC Glucose 113 H Calcium POC WB Ioniz Calcium 1.11 L Total Bilirubin Direct Bilirubin AST ALT Total Creatine Kinase Total Protein Albumin Globulin Albumin/Globulin Ratio Meds: Medications Acetaminophen (Acetaminophen 325 Mg Tablet) 650 mg PO Q6HP PRN; Protocol PRN Reason: Per Pain Protocol/Fever > 101 Albuterol/Ipratropium (Ipratropium/Albuterol 3 Ml Ampul.Neb) 3 ml NEB Q4HRT PRN PRN Reason: Wheezing Amlodipine Besylate (Amlodipine 10 Mg Tablet) 10 mg PO QDAY [facility] Last Admin: 01/18/23 08:14 Dose: 10 mg Apixaban (Apixaban 5 Mg Tablet) 5 mg PO BID [facility] Last Admin: 01/18/23 08:14 Dose: 5 mg Docusate Sodium (Docusate Sodium 100 Mg Capsule) 100 mg PO BID [facility] Last Admin: 01/18/23 08:14 Dose: 100 mg Hydralazine HCl (Hydralazine 20 Mg/Ml Vial) 10 mg IV Q4-6HP PRN PRN Reason: Hypertension Sodium Chloride (Sodium Chloride 0.9%) 1,000 mls @ 200 mls/hr IV .Q5H [facility] Last Admin: 01/18/23 05:16 Dose: Not Given Indomethacin (Indomethacin 25 Mg Capsule) 25 mg PO TIDP PRN PRN Reason: "three times daily as needed" Losartan Potassium (Losartan 25 Mg Tablet) 25 mg PO DAILY [facility] Last Admin: 01/18/23 08:14 Dose: 25 mg Morphine Sulfate (Morphine 4 Mg/Ml Vial) 2 mg IV Q4HP PRN; Protocol PRN Reason: Per Pain Protocol Last Admin: 01/16/23 17:56 Dose: 2 mg Ondansetron HCl (Ondansetron 4 Mg/2 Ml Vial) 4 mg IV Q6HP PRN PRN Reason: Nausea And Vomiting Oxycodone HCl (Oxycodone Ir 5 Mg Tablet) 5 mg PO Q4HP PRN; Protocol PRN Reason: Per Pain Protocol Last Admin: 01/16/23 22:03 Dose: 5 mg Senna (Sennosides 1 Tablet) 2 tab PO HS [facility] Last Admin: 01/17/23 20:15 Dose: 2 tab Sodium Chloride (0.9 % Sodium Chloride 10 Ml Syringe) 10 ml IV Q8 [facility] Last Admin: 01/18/23 05:29 Dose: Not Given Trazodone HCl (Trazodone Hcl 50 Mg Tablet) 25 mg PO HSP PRN PRN Reason: Insomnia A/P Assessment and plan (1) Dislocation of left shoulder joint: Status: Acute (2) Rhabdomyolysis: Status: Acute Qualifiers: Encounter type: initial encounter Rhabdomyolysis type: traumatic Qualified Code(s): T79.6XXA - Traumatic ischemia of muscle, initial encounter (3) Hypertension: Status: Chronic Narrative A/P Narrative: Assessment and Plans: 1. Rhabdomyolysis: Inpatient med surg s/p IV fluid bolus given in the ER, to be followed by NS@200cc/hr Daily serum CK level to trend Daily CMP to trend kidney functions 2. Left shoulder dislocation: s/p reduction by Dr. Deshpande Tylenol Oxycodone Morphine Sling 10-14 days follow up with Dr. Deshpande Physical therapy evaluation and treatment Occupational therapy evaluation and treatment 3. Essential hypertension: Coreg Amlodipine Quinapril Hydralazine 10mg IV q4-6hr PRN SBP>=180 and/or DBP>=110mmHg GI ppx: not currently indicated DVT ppx: Lovenox Code status: Full Prognosis: guarded Disposition: inpatient med surg; SNF Time Spent With Patient Time: Total time spent is greater than 50% in coordination of care (as documented) at patient's floor/unit and/or counseling patient: Subsequent: Total time with patient: 35 - 49 minutes QUALITY Stroke Symptom Onset Unknown: No VTE Deep Vein Thrombosis/Pulmonary Embolism Present on Admission: No
[2023-01-18 18:49] LABS: Creatine Kinase 641 U/L (24-195)
[2023-01-18] MEDS: SENNOSIDES 1 TABLET PO SCH (20:16)
[2023-01-19] MEDS: 0.9 % SODIUM CHLORIDE 1,000 ML IV SCH ×2 (04:13→09:19)
[2023-01-19] MEDS: 0.9 % SODIUM CHLORIDE 10 ML SYRINGE IV SCH ×2 (05:03→05:08)
--- NOTE | 2023-01-19 05:48 | EKG ---
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
[2023-01-19 06:18] LABS: Basophils # (Auto) 0.03 K/mcL (0.00-0.30); Basophils % (Auto) 0.4 % (0.0-2.0); Eosinophils # (Auto) 0.06 K/mcL (0.00-0.70); Eosinophils % (Auto) 0.8 % (0.0-7.0); Hematocrit 34.2 % (40.1-51.0); Hemoglobin 12.1 g/dL (13.7-17.5); Lymphocytes # (Auto) 0.81 K/mcL (1.50-4.80); Lymphocytes % (Auto) 10.6 % (15.5-49.0); Mean Cell Volume 92.4 fL (80.0-100.0); Mean Corpuscular HGB Conc 35.4 g/dL (31.0-36.0); Mean Platelet Volume 10.9 fL (8.8-12.5); Monocytes # (Auto) 0.97 K/mcL (0.10-0.90); Monocytes % (Auto) 12.7 % (1.0-12.0); Neutrophils % (Auto) 74.3 % (38.0-78.0); Platelet Count 157 K/mcL (140-440); Red Cell Distribution Width 12.8 % (11.5-14.5); WBC 7.6 K/mcL (4.5-11.0)
[2023-01-19 06:52] LABS: ALT/SGPT 56 U/L (<40); AST/SGOT 83 U/L (<40); Albumin 2.4 gm/dL (3.2-5.2); Albumin/Globulin Ratio 0.8 (1.0-2.3); Alkaline Phosphatase 51 U/L (39-117); Bilirubin,Total 0.7 mg/dL (0.1-1.0); Blood Urea Nitrogen 20 mg/dL (8-23); Carbon Dioxide 23 mmol/L (22-30); Chloride 114 mmol/L (96-108); Glomerular Filtration Rate 96; Glucose 112 mg/dL (70-105)
--- NOTE | 2023-01-19 07:29 | Orthopedic Progress Note ---
SUBJECTIVE Subjective Patient information: Note initiated : 01/19/23 at 7:27 am Service Date, if different from initiated Date: [] Patient: Cornelius Sullivan 88 y/o M admitted on 01/16/23 for . Chief Complaint: [s/p left shoulder reduction ] Pertinent ROS: 10 points reviewed and are negative except where mentioned Constitutional Vitals: Vital Signs Temp Pulse Resp BP Pulse Ox O2 Del Method O2 Flow Rate 98.0 F 65 16 158/84 95 Nasal Cannula 4 01/19/23 07:06 01/19/23 07:06 01/19/23 07:06 01/19/23 07:06 01/19/23 07:06 01/19/23 07:06 01/19/23 07:06 Period Temp Pulse Resp BP Sys/Alexis Pulse Ox O2 Del Method O2 Flow Rate Last 24 Hr 97.7 F-98.8 F 63-79 16-24 130-170/67-84 95-98 Nasal Cannula- Room Air 2-4 Intake and Output 01/18/23 01/19/23 01/19/23 19:59 03:59 11:59 Intake Total 1645 1400 1000 Output Total 475 825 100 Balance 1170 575 900 Weight 201 lb 1.6 oz 206 lb 9.6 oz Intake & Output: Intake & Output 01/18/23 01/19/23 01/19/23 19:59 03:59 11:59 Intake Total 1645 1400 1000 Output Total 475 825 100 Balance 1170 575 900 Weight 201 lb 1.6 oz 206 lb 9.6 oz Intake: IV 980 1000 1000 Sodium Chloride 0.9% 1,000 ml @ 980 1000 1000 200 mls/hr IV .Q5H [facility] Rx#: [id number] Oral 665 400 Output: Void Amount 475 825 100 Other: Meal Dinner Percent of Meal Consumed 100% Feeding Ability Assist with Tray Set Up Urine Appearance Clear Clear Urine Color Light Rosalba Light Rosalba Urine Odor Normal Stool Size Copious Stool Color Brown Stool Consistency Loose # Voids 1 # Bowel Movements 1 OBJ DATA Labs 01/19/23 05:34 01/19/23 05:34 Labs: Abnormal Lab Results 01/19/23 01/19/23 01/18/23 05:34 05:34 18:00 WBC RBC 3.70 L Hgb 12.1 L Hct 34.2 L Immature Gran % (Auto) 1.2 H Neut % (Auto) Lymph % (Auto) 10.6 L [place] % (Auto) 12.7 H Lymph # (Auto) 0.81 L [place] # (Auto) 0.97 H Immature Gran # 0.09 H Absolute Neutrophils PT Chloride 114 H Carbon Dioxide Anion Gap 5.0 L POC BUN BUN Creatinine 0.5 L Glucose 112 H POC Glucose Calcium 8.0 L POC WB Ioniz Calcium Total Bilirubin Direct Bilirubin AST 83 H ALT 56 H Total Creatine Kinase 641 H Total Protein 5.4 L Albumin 2.4 L Globulin Albumin/Globulin Ratio 0.8 L 01/18/23 01/18/23 01/17/23 05:18 05:18 17:50 WBC RBC 3.86 L Hgb 12.4 L Hct 37.9 L Immature Gran % (Auto) 0.8 H Neut % (Auto) Lymph % (Auto) 8.7 L [place] % (Auto) 13.2 H Lymph # (Auto) 0.67 L [place] # (Auto) 1.02 H Immature Gran # 0.06 H Absolute Neutrophils PT Chloride 112 H Carbon Dioxide 20 L Anion Gap POC BUN BUN 37 H Creatinine 0.6 L Glucose POC Glucose Calcium 7.8 L POC WB Ioniz Calcium Total Bilirubin Direct Bilirubin AST 129 H ALT 64 H Total Creatine Kinase 1922 H Total Protein 5.7 L Albumin 2.6 L Globulin Albumin/Globulin Ratio 0.8 L 01/17/23 01/17/23 01/16/23 05:38 05:38 17:55 WBC RBC 4.24 L Hgb Hct 38.6 L Immature Gran % (Auto) Neut % (Auto) 83.9 H Lymph % (Auto) 4.8 L [place] % (Auto) Lymph # (Auto) 0.49 L [place] # (Auto) 1.10 H Immature Gran # Absolute Neutrophils 8.49 H PT Chloride 110 H Carbon Dioxide 21 L Anion Gap POC BUN BUN 59 H Creatinine Glucose POC Glucose Calcium 7.9 L POC WB Ioniz Calcium Total Bilirubin Direct Bilirubin AST 193 H ALT 80 H Total Creatine Kinase 5330 H Total Protein 5.8 L Albumin 2.7 L Globulin Albumin/Globulin Ratio 0.9 L 01/16/23 01/16/23 01/16/23 14:41 14:41 14:40 WBC 15.8 H RBC Hgb Hct Immature Gran % (Auto) Neut % (Auto) 86.2 H Lymph % (Auto) 3.4 L [place] % (Auto) Lymph # (Auto) 0.54 L [place] # (Auto) 1.57 H Immature Gran # 0.07 H Absolute Neutrophils 13.60 H PT 14.6 H Chloride Carbon Dioxide Anion Gap POC BUN BUN Creatinine Glucose POC Glucose Calcium POC WB Ioniz Calcium Total Bilirubin 1.4 H Direct Bilirubin 0.4 H AST 264 H ALT 98 H Total Creatine Kinase 5089 H Total Protein Albumin Globulin 3.9 H Albumin/Globulin Ratio 01/16/23 14:37 WBC RBC Hgb Hct Immature Gran % (Auto) Neut % (Auto) Lymph % (Auto) [place] % (Auto) Lymph # (Auto) [place] # (Auto) Immature Gran # Absolute Neutrophils PT Chloride Carbon Dioxide Anion Gap POC BUN 61 H BUN Creatinine Glucose POC Glucose 113 H Calcium POC WB Ioniz Calcium 1.11 L Total Bilirubin Direct Bilirubin AST ALT Total Creatine Kinase Total Protein Albumin Globulin Albumin/Globulin Ratio Meds: Medications Acetaminophen (Acetaminophen 325 Mg Tablet) 650 mg PO Q6HP PRN; Protocol PRN Reason: Per Pain Protocol/Fever > 101 Albuterol/Ipratropium (Ipratropium/Albuterol 3 Ml Ampul.Neb) 3 ml NEB Q4HRT PRN PRN Reason: Wheezing Amlodipine Besylate (Amlodipine 10 Mg Tablet) 10 mg PO QDAY [facility] Last Admin: 01/18/23 08:14 Dose: 10 mg Apixaban (Apixaban 5 Mg Tablet) 5 mg PO BID [facility] Last Admin: 01/18/23 20:16 Dose: 5 mg Docusate Sodium (Docusate Sodium 100 Mg Capsule) 100 mg PO BID [facility] Last Admin: 01/18/23 20:16 Dose: 100 mg Hydralazine HCl (Hydralazine 20 Mg/Ml Vial) 10 mg IV Q4-6HP PRN PRN Reason: Hypertension Sodium Chloride (Sodium Chloride 0.9%) 1,000 mls @ 200 mls/hr IV .Q5H [facility] Last Admin: 01/19/23 04:13 Dose: 200 mls/hr Indomethacin (Indomethacin 25 Mg Capsule) 25 mg PO TIDP PRN PRN Reason: "three times daily as needed" Losartan Potassium (Losartan 25 Mg Tablet) 25 mg PO DAILY [facility] Last Admin: 01/18/23 08:14 Dose: 25 mg Morphine Sulfate (Morphine 4 Mg/Ml Vial) 2 mg IV Q4HP PRN; Protocol PRN Reason: Per Pain Protocol Last Admin: 01/16/23 17:56 Dose: 2 mg Ondansetron HCl (Ondansetron 4 Mg/2 Ml Vial) 4 mg IV Q6HP PRN PRN Reason: Nausea And Vomiting Oxycodone HCl (Oxycodone Ir 5 Mg Tablet) 5 mg PO Q4HP PRN; Protocol PRN Reason: Per Pain Protocol Last Admin: 01/16/23 22:03 Dose: 5 mg Senna (Sennosides 1 Tablet) 2 tab PO HS [facility] Last Admin: 01/18/23 20:16 Dose: 2 tab Sodium Chloride (0.9 % Sodium Chloride 10 Ml Syringe) 10 ml IV Q8 [facility] Last Admin: 01/19/23 05:08 Dose: Not Given Trazodone HCl (Trazodone Hcl 50 Mg Tablet) 25 mg PO HSP PRN PRN Reason: Insomnia A/P Narrative A/P Narrative: Patient seen and examined this a.m. awake alert conversant, cooperative answers questions appropriately. Has no complaints of pain at the left shoulder, pillow sling shoulder immobilizer in place and intact. No obvious deformities at the shoulder area, left arm is warm, well-perfused, neurovascular intact with bounding radial pulses. Does endorse some numbness at the third and fourth fingers, suspect mild wrist palsy as his hand is extended past the end of sling and laterally dependent. Discussed maintaining proper fitment of his arm in the sling for relief. Stable from orthopedic standpoint will defer final disposition to attending hospitalist. Plan is for expected discharge in 1 to 2 days at hospitalist discretion with follow-up at [facility] in 10 to 14 days. Nonweightbearing with left upper extremity Sling at all times. PT/OT Pain control Time Spent With Patient Time: Total time spent is greater than 50% in coordination of care (as documented) at patient's floor/unit and/or counseling patient:
[2023-01-19] MEDS: amLODIPine 10 MG TABLET PO SCH (08:17)
[2023-01-19] MEDS: LOSARTAN 25 MG TABLET PO SCH (08:17)
[2023-01-19] MEDS: DOCUSATE SODIUM 100 MG CAPSULE PO SCH (08:18)
[2023-01-19] MEDS: APIXABAN 5 MG TABLET PO SCH (08:18)
--- NOTE | 2023-01-19 14:26 | Discharge Summary ---
Discharge Provider Provider IMPORTANT FOLLOW-UP INFORMATION FOR PCP: Patient information: Note initiated : 01/19/23 at 2:17 pm Service Date, if different from initiated Date: [] Patient: Cornelius Sullivan a 88 y/o M admitted on 01/16/23 for Fall, Rhabdo. Chief Complaint: [] Date of admission: 01/16/23 17:38 Discharge date: 01/19/23 Primary care physician: Zuri Patton Attending physician on admission: Aman Armijo Consults: 01/16/23 16:12 Consult to Physician [CONS] Stat Comment: Consulting Provider: Tate Deshpande Reason For Exam: Physician to Consult Consult to Physician [CONS] Stat Comment: Consulting Provider: Aman Armijo Reason For Exam: Physician to Consult Attending physician on discharge: Aman Armijo COURSE Hospital Course Hospital course: Mr. Sullivan is a 88 year old M history of hypertensions presenting with unresponsiveness. Patient had an appointment with his family but he did not show up so his family was concerned and called patient's neighbor to check on him. Patient's neighbor found that the patient was on his bath top unresponsive so EMS was called to send the patient to our ER for further evaluations. Upon arrival to the ER, patient was able to carry out conversations but x-ray of the shoulder found that he has a left anterior-inferior glenohumeral dislocations with associated Bankart and Hill-Sachs fracture. Patient was likely sedated and orthopedic surgeons Dr. Deshpande was called to reduced his left shoulder dislocations. CT of the head did not show any acute intracranial pathologies. Labs also found the patient have elevated serum CK level 5089 with serum Cr level 0.8. Admission request is called for rhabdomyolysis as well as for safety discharge planning. 01/17: Serum Cr level 0.8, serum CK 5330. Adequate urine output. Patient denies having any left shoulder pain. A&OX2 to person and place only. Continue normal saline infusion at 200 cc/h. Continue with daily CMP and CK to trend kidney functions and serum CK level, respectively. Narcotic as needed for left shoulder pain. Physical therapy and Occupational Therapy evaluation and treatment for placement pending. Overall condition guarded. Stay in [facility]. 01/18: Serum Cr level 0.6, serum CK 1922. Adequate urine output. Patient denies having any left shoulder pain. A&OX2 to person and place only. Continue normal saline infusion at 200 cc/h. Continue with daily CMP and CK to trend kidney functions and serum CK level, respectively. Narcotic as needed for left shoulder pain. Physical therapy and Occupational Therapists recs. SNF placement. Overall condition stable. Stay in [facility] while pending discharge to SNF. 01/19: Discharged to SNF. Followed up with wound care, with orthopedic, and SNF MD, respectively. Rx given to patient. All questions were answered prior to patient being physically discharged. Discharge diagnosis: Rhabdomyolysis, sacral decubitus ulcer, left shoulder dislocation Time Spent with Patient Time attestation: Total time spent providing and/or coordinating discharge services: Time spent: Greater than 30 minutes EXAM Constitutional Vitals: Temp Pulse Resp BP Pulse Ox O2 Del Method O2 Flow Rate 36.6 C 65 16 145/74 95 Room Air 4 01/19/23 12:00 01/19/23 12:01/19/23 12:01/19/23 12:01/19/23 12:00 01/19/23 12:00 01/19/23 12:00 General appearance: cooperative and no acute distress Head Head exam: Present atraumatic and normocephalic Eye Eye exam: Present EOMI and PERRL ENT ENT exam: Present mucous membranes moist, normal exam and normal external ear exam Additional comments: Nasal cannula in place Neck Neck exam: Present normal inspection; Absent lymphadenopathy, tenderness or thyromegaly Respiratory Respiratory exam: Absent accessory muscle use, respiratory distress or wheezes Cardiovascular Cardiovascular exam: Present normal rate and rhythm; Absent JVD GI/Abdominal GI/Abdominal exam: Present normal bowel sounds and soft; Absent organomegaly or tenderness Rectal Rectal exam: Present deferred Extremities Exam Extremities exam: Present full ROM, normal capillary refill and normal inspection; Absent tenderness Additional comments: Left shoulder sling in place Back Exam Additional comments: Sacral decubitus ulcer, unstageable Neurological Exam Neurological exam: Present alert, CN II-XII intact and oriented X3; Absent motor sensory deficit Psychiatric Psychiatric exam: Present normal affect and normal mood; Absent anxious or depressed Skin Skin exam: Present dry; Absent intact Additional comments: Sacral decubitus ulcer, unstageable Left elbow stage II ulcer Discharge Data Data Completed and Pending Labs on day of discharge: Labs from last 24 hours 0501/19/23 01/18/23 05:34 05:34 18:00 WBC 7.6 RBC 3.70 L Hgb 12.1 L Hct 34.2 L MCV 92.4 MCH 32.7 MCHC 35.4 RDW 12.8 Plt Count 157 MPV 10.9 Immature Gran % (Auto) 1.2 H Neut % (Auto) 74.3 Lymph % (Auto) 10.6 L [place] % (Auto) 12.7 H Eos % (Auto) 0.8 Baso % (Auto) 0.4 Lymph # (Auto) 0.81 L [place] # (Auto) 0.97 H Eos # (Auto) 0.06 Baso # (Auto) 0.03 Immature Gran # 0.09 H Absolute Neutrophils 5.67 Sodium 142 Potassium 3.7 Chloride 114 H Carbon Dioxide 23 Anion Gap 5.0 L BUN 20 Creatinine 0.5 L GFR Calculation 96 Glucose 112 H Calcium 8.0 L Total Bilirubin 0.7 AST 83 H ALT 56 H Alkaline Phosphatase 51 Total Creatine Kinase 641 H Total Protein 5.4 L Albumin 2.4 L Globulin 3.0 Albumin/Globulin Ratio 0.8 L Discharge Plan Patient/Caregiver Discharge Instructions Activity: increase activity as tolerated Diet: Regular Diet Prescriptions: Continued carvedilol 6.25 mg tablet 6.25 mg PO BID Rx Instructions: must administer with a meal/food amlodipine 10 mg tablet 10 mg PO QDAY quinapril 40 mg tablet 40 mg PO QDAY salmon oil-omega-3 fatty acids 1,000-200 mg capsule PO Centrum Silver Men 300-600-300 mcg tablet 1 tab PO QDAY ibuprofen 400 mg tablet 400 mg PO Q8H PRN (Reason: prakash) Qty: 30 0RF apixaban 5 mg tablet 5 mg PO BID losartan 25 mg tablet 25 mg PO QID indomethacin 25 mg capsule 25 mg PO TID PRN (Reason: "three times daily as needed") Changed acetaminophen-codeine 300 mg tablet 300 mg PO TID PRN (Reason: as needed) Qty: 30 0RF Rx Instructions: take one tablet 300/30mg by mouth three times daily as needed. Discontinued acetaminophen-codeine 300 mg-30 mg /12.5 mL solution PO TID Other Ambulatory Orders: OT Discharge Order (Routine) Location: None Selected Ordered By: Aman Armijo Physical Therapy at Discharge - General (Routine) Location: None Selected Ordered By: Aman Armijo Follow Up Plan Follow up with: Jared Alanis MD [Physician] - (Follow up in the wound healing clinic within 5-7 days after discharge for sacral unstageable pressure injury. ) Tate Deshpande MD [Physician] - (10-14 d s/p reduction dislocation) Zuri Patton MD [Primary Care Provider] - Patient Disposition: Xfer SNF Rehab Potential: Good I certify that the patient requires SNF services: Yes Overall status at discharge: patient is progressing back to baseline Discharge Orders: Discharge Order (Routine); Ordered 01/19/23 Ordered By: Aman Armijo QUALITY VTE Deep Vein Thrombosis/Pulmonary Embolism Present on Admission: No
[2023-01-19] MEDS ORDERED: FUROSEMIDE 40 MG TABLET PO ONE (14:35)
--- NOTE | 2023-01-19 15:09 | General Surgery Consult Note ---
HPI Date of Consult Consult Date: 01/19/23 Requesting physician: Aman Armijo Primary Care Provider: Zuri Patton Consult Narrative Patient Information: Note initiated : 01/19/23 at 2:44 pm Service Date, if different from initiated Date: [] Patient: Cornelius Sullivan 88 y/o M admitted on 01/16/23 for Fall, Rhabdo. Chief Complaint: [] Chief complaint: LEFT shoulder closed fracture/dislocation.(Reduced) Rhabdomyolysis. Reason for consult: Wound care / management. Multiple bruises and sacral PU. cc:: I saw this gentleman on Med surg floor along with Bennett Sanon RN. Wound Care Nurse CC: Aman Armijo MD. Reviewed details of HPI and progress thus far. Musculoskeletal Musculoskeletal: Present other Integumentary Integumentary: Present wounds (Multiple wounds LEFT shoulder, arm and elbow. Left shoulder in sling. S/O closed reduction.) Neurological Neurological: Present other (Conversational. Post traumatic amnesia. NO focal neurologic complaints or deficits.) PFSH PFSH All Active Problems Sacral decubitus ulcer, stage II (Acute) Dislocation of left shoulder joint (Acute) Hematuria (Acute) Arrhythmia (Chronic) Hypertension (Chronic) Elevated liver enzymes (Chronic) Alcoholic fatty liver (Chronic) Cervical spondylolysis (Chronic) Spinal stenosis in cervical region (Chronic) Weakness of distal arms and legs (Chronic) Pain in right shoulder (Chronic) Squamous cell carcinoma (Chronic) Hearing loss (Chronic) Stiff neck (Chronic) Gross hematuria (Acute) H/O prostate cancer (Chronic) Status post radiation therapy (Chronic) Cellulitis of knee, left (Acute) Syncope (Acute) Closed head injury (Acute) Anterior dislocation of left shoulder (Acute) Rhabdomyolysis (Acute) Medical History Alcoholic fatty liver Arrhythmia Cervical spondylolysis with radiculopathy Elevated liver enzymes Hearing loss Hematuria Hypertension Pain in right shoulder Spinal stenosis in cervical region Squamous cell carcinoma Stiff neck Weakness of distal arms and legs Surgical History History of cataract extraction History of surgery Neck Reconstruction-2020 History of surgery implants Family History Father Cancer Sister Diabetes Cancer Social History marital status: occupational status: retired leisure activities: exercise smoking status: Never smoker alcohol intake frequency: 0-2 drinks per day substance use type: does not use MEDS/ALLERGIES Home Medications and Allergies Home Medications Medication Instructions Recorded Confirmed Type amlodipine 10 mg tablet 10 mg PO QDAY 05/25/22 01/17/23 History carvedilol 6.25 mg tablet 6.25 mg PO BID 05/25/22 07/10/22 History kjelvutc-eul-uethl acid 300 1 tab PO QDAY 05/25/22 07/10/22 History mcg-lycopene 600 mcg-lutein 300 mcg tablet (Centrum Silver Men) quinapril 40 mg tablet 40 mg PO QDAY 05/25/22 07/10/22 History salmon oil-omega-3 fatty acids cap PO 05/25/22 07/10/22 History 1,000 mg-200 mg capsule ibuprofen 400 mg tablet 400 mg PO Q8H PRN prakash #30 tabs 12/28/22 Rx apixaban 5 mg PO BID 01/17/23 01/17/23 History indomethacin 25 mg PO TID PRN "three times 01/17/23 01/17/23 History daily as needed" losartan 25 mg PO QID 01/17/23 01/17/23 History acetaminophen-codeine 300 mg PO TID PRN as needed #30 01/19/23 Rx tab-caps Allergies Allergy/AdvReac Type Severity Reaction Status Date / Time No Known Drug Allergies Allergy Verified 01/16/23 14:19 Physical Examination Vital Signs Vital signs: Temp Pulse Resp BP Pulse Ox O2 Del Method O2 Flow Rate 97.8 F 65 16 145/74 95 Room Air 4 01/19/23 12:00 01/19/23 12:00 01/19/23 12:00 01/19/23 12:00 01/19/23 12:00 01/19/23 12:00 01/19/23 12:00 General physical appearance General physical exam: well developed, well nourished, no distress, obese and other (LEFT arm by side and LEFT elbow in sling and immobilized.) Eyes Eye exam: PERRL and normal ocular movement ENT ENT exam: normal pinna, normal nares and other (Hearing Aid both ears.) Head Head exam IM: Present atraumatic and normocephalic Neck Neck exam: no masses, no lymphadenopathy and no venous distension Cardiovascular Cardiovascular exam IM: Present irregular rhythm Respiratory Respiratory exam: normal respiratory effort and clear to auscultation Abdomen Abdomen: Present soft, non tender and bowel sounds Integumentary Integumentary: Present other (Bruises, Ecchymosis LEFT anterior shoulder and upper arm and elbow. Drainage of serous fluid from LEFT elbow site. SACRAL PU with demarcating dense white eschar.) Neurologic Neurologic: Present normal coordination and other (Moves all extremities. NO NV deficits. Amnesia of events surrounding incident.) Musculoskeletal Musculoskeletal: Present other (LEFT shoulder anterior dilocation with fracture. Closed reduction performed in ER. Arm / Elbow in sling.) Psychiatric Psychiatric: Present oriented to time, oriented to place and speech is normal Additional Findings Additional exam: Lab results reviewed. Results Labs 01/19/23 05:34 01/19/23 05:34 Labs: Abnormal lab results 01/18/23 01/19/23 01/19/23 Range/Units 18:00 05:34 05:34 RBC 3.70 L (4.63-6.08) M/mcL Hgb 12.1 L (13.7-17.5) g/dL Hct 34.2 L (40.1-51.0) % Immature Gran % (Auto) 1.2 H (0.0-0.5) % Lymph % (Auto) 10.6 L (15.5-49.0) % [place] % (Auto) 12.7 H (1.0-12.0) % Lymph # (Auto) 0.81 L (1.50-4.80) K/mcL [place] # (Auto) 0.97 H (0.10-0.90) K/mcL Immature Gran # 0.09 H (0.00-0.05) K/mcl Chloride 114 H (96-108) mmol/L Anion Gap 5.0 L (8.0-16.0) Creatinine 0.5 L (0.7-1.2) mg/dL Glucose 112 H (70-105) mg/dL Calcium 8.0 L (8.6-10.4) mg/dL AST 83 H (<40) U/L ALT 56 H (<40) U/L Total Creatine Kinase 641 H (24-195) U/L Total Protein 5.4 L (5.9-8.4) gm/dL Albumin 2.4 L (3.2-5.2) gm/dL Albumin/Globulin Ratio 0.8 L (1.0-2.3) Diabetes panel 01/19/23 Range/Units 05:34 Sodium 142 (133-145) mmol/L Potassium 3.7 (3.3-5.1) mmol/L Chloride 114 H (96-108) mmol/L Carbon Dioxide 23 (22-30) mmol/L BUN 20 (8-23) mg/dL Creatinine 0.5 L (0.7-1.2) mg/dL Glucose 112 H (70-105) mg/dL Calcium 8.0 L (8.6-10.4) mg/dL AST 83 H (<40) U/L ALT 56 H (<40) U/L Alkaline Phosphatase 51 (39-117) U/L Total Protein 5.4 L (5.9-8.4) gm/dL Albumin 2.4 L (3.2-5.2) gm/dL Calcium panel 01/19/23 Range/Units 05:34 Calcium 8.0 L (8.6-10.4) mg/dL Albumin 2.4 L (3.2-5.2) gm/dL Pituitary panel 01/19/23 Range/Units 05:34 Sodium 142 (133-145) mmol/L Potassium 3.7 (3.3-5.1) mmol/L Chloride 114 H (96-108) mmol/L Carbon Dioxide 23 (22-30) mmol/L BUN 20 (8-23) mg/dL Creatinine 0.5 L (0.7-1.2) mg/dL Glucose 112 H (70-105) mg/dL Calcium 8.0 L (8.6-10.4) mg/dL Adrenal panel 01/19/23 Range/Units 05:34 Sodium 142 (133-145) mmol/L Potassium 3.7 (3.3-5.1) mmol/L Chloride 114 H (96-108) mmol/L Carbon Dioxide 23 (22-30) mmol/L BUN 20 (8-23) mg/dL Creatinine 0.5 L (0.7-1.2) mg/dL Glucose 112 H (70-105) mg/dL Calcium 8.0 L (8.6-10.4) mg/dL Total Bilirubin 0.7 (0.1-1.0) mg/dL AST 83 H (<40) U/L ALT 56 H (<40) U/L Alkaline Phosphatase 51 (39-117) U/L Total Protein 5.4 L (5.9-8.4) gm/dL Albumin 2.4 L (3.2-5.2) gm/dL All other labs normal. A/P Narrative A/P Narrative: Assessment: H/O being found in bathroom, LIKELY Ground level fall, Trauma of LEFT shoulder/ arm and elbow. (Patient lives by himself) elderly gentleman: 88 years. Multiple bruises LEFT shoulder arm and elbow region. Sacral PU DTI at this time NO drainage. NO urine or stool contamination. Plan of Treatment: Plan: Protective Foam bordered dressing around elbow. Bacitracin to bruised areas LEFT elbow and sacral region. OFFLOAD. Will follow in wound care clinic after discharge. Time Spent With Patient Time: Total time spent is greater than 50% in coordination of care (as documented) at patient's floor/unit and/or counseling patient: Initial: Total time with patient: 40 - 54 minutes
== END 2023-01-19 15:10 | DRG 558 ==
LOC: ED 14:10 → MEDSUR 17:38
PROVIDERS: ADMIT Internal Medicine; ATTEND Internal Medicine